=== PATIENT | female | born 1970 | race Caucasian/White ===

== ENCOUNTER 2024-04-02 13:44 | Outpatient (AMB) | payer OTHER, SELFPAY ==
[2024-04-02 13:46] VITALS: BP 120/74; PULSE 78; O2SAT 98; BMI 32.5
--- NOTE | 2024-04-02 13:46 | MHC.OFFVIS ---
Vital Signs 04/02/24 13:46 Height 5 ft 5 in Weight 195 lb 8 oz BMI 32.5 BP 120/74 Blood Pressure Location Lt brachial Position Sitting Pulse 78 Pulse Source Pulse Oximeter Pulse Oximetry (%) 98 Oxygen Delivery Method Room Air Intake Visit Reasons: Dermatomyositis Intake Note: Patient presents for follow up on dermatomyositis with myopathy. She was last seen at [facility] by DR. Little on 01/02/24. Allergies No Known Allergies Allergy (Verified 04/02/24 13:49) HPI HPI Dermatomyositis: Details: She is doing well. No muscle weakness, dyspnea, dysphagia or new rash. No recent infection. [facility] Surgical History (Updated 04/02/24 @ 13:54 by Tatiana Allen CMA) H/O breast augmentation S/P tonsillectomy Family History (Updated 04/02/24 @ 13:55 by Tatiana Allen CMA) Mother Lung cancer Father Diabetes Social History (Updated 04/02/24 @ 13:55 by Tatiana Allen CMA) Household Members: Family Alcohol intake: current Alcohol intake frequency: holidays/special occasions only Patient Tobacco Use Status: Former Tobacco user Review of Systems Const All systems reviewed & are unremarkable except as noted in HPI and below Physical Exam Vital Signs: Last Vital Signs Pulse 78 04/02/24 13:46 BP 120/74 04/02/24 13:46 Pulse Ox 98 04/02/24 13:46 Oxygen Delivery Method Room Air 04/02/24 13:46 BMI result Body Mass Index 32.5 Const Other: General: Comfortable CVS: RRR Respiratory: clear to auscultation bilaterally. Good respiratory effort Skin: No lesions seen MSK: No tenderness of any joint. Good range of motion of upper extremities and lower extremities. Power 5/5 upper extremities and lower extremities. Assessment & Plan Assessment & Plan (1) Dermatomyositis: Comment: In clinical remission on mycophenolate mofetil. Code(s): M33.13 - Other dermatomyositis without myopathy Category: Medical Plan: Labs for disease and drug monitoring on high-risk medication ordered Continue mycophenolate mofetil 1500 mg twice a day Return to clinic in 3 months (2) Other senior care (current) drug therapy: Code(s): Z79.899 - Other senior care (current) drug therapy Category: Medical Plan: See above Orders: Orders Aldolase Today . - Other dermatomyositis without myopathy, Z79.899 - Other senior care (current) drug therapy Creatine Kinase Total Today . - Other dermatomyositis without myopathy, Z79.899 - Other senior care (current) drug therapy T Spot TB Today . - Other dermatomyositis without myopathy, Z79.899 - Other senior care (current) drug therapy Hepatitis B,C Profile Today - Other dermatomyositis without myopathy, Z79.899 - Other senior care (current) drug therapy Medications: New mycophenolate mofetil 3 tabs in the morning, 3 tabs at night. 1,500 mg (3 x 500 mg) PO BID 180 tabs 2RF mycophenolate mofetil 3 tabs in the morning, 3 tabs at night. Replace previous rx. 1,500 mg (3 x 500 mg) PO BID 180 tabs 2RF Coding Level of Care Code Est Pt Level 4 (55091) Complex EM visit Add On G2211 Diagnoses Dermatomyositis Other long term care social worker (current) drug therapy Z79.899
--- OUTSIDE RECORDS SUMMARY | 2024-04-02 14:40 | XMS_ITS | Clinical Summary ---
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 08/09/2023 Active EPINEPHrine (EpiPen 2-Chase) 0.3 mg/0.3 mL injection Inject 0.3 mg into the muscle as needed for Other (anaphylactic reaction). 2-pack. Fill with whichever brand is covered by insurance. 07/27/2021 Active mycophenolate (CELLCEPT) 500 mg tablet Take 1,500 mg by mouth [address] Vizcaino Active loratadine (CLARITIN) 10 mg tablet Take 10 mg by mouth daily. PRN Only Active fluticasone propionate (FLONASE) 50 mcg/actuation nasal spray 2 Sprays by Each Nare route daily. prn Active melatonin 5 mg capsule Take 1-2 Caps by mouth at bedtime as needed. Active multivitamin with minerals (CENTRUM/CERTAVIT) 18-400 mg-mcg tablet tablet Take by mouth. Active atorvastatin (LIPITOR) 10 mg tablet Take 1 tablet (10 mg total) by mouth at bedtime. 90 tablet 02/22/2024 Active Active Problems Problem Noted Date Diagnosed Date Tubular adenoma 11/23/2022 Overview (12/25/2023): 11/26 CN tubular adenoma, repeat 5 years Dermatomyositis 02/13/2019 Positive MATT (antinuclear antibody) 11/08/2018 Obesity (BMI 30.0-34.9) 12/19/2017 Hyperlipidemia 08/13/2008 Overview (12/25/2023): ASCVD score: 4% (DEC 2019) Hypothyroid 07/13/2008 Bipolar disorder 08/24/2005 Overview (12/25/2023): admission 05/09, manic Encounters Date Type Department Care Team Description 02/08/2024 3:30 PM EST Office Visit Adult Medicine [address] [phone] Michaelle Caldera PA Hypothyroidism, unspecified type (Primary Dx); Mixed hyperlipidemia; Obesity (BMI 30.0-34.9); Fatigue, unspecified type; Snoring from Last 3 Months Immunizations Name Administration Dates Next Due COVID-19 (Pfizer/Comirnaty) 12yo and older 04/05/2023 H1N1 Inj Preservative Free 02/20/2009 Hepatitis B (Dhhbbkg-G-Lwarc , Recombivax HB-Adult) 19yo and older 04/24/2019,07/20/2016,02/24/2016,01/26 Influenza Quadravalent, MDCK , 0.5ml, preservative free (Flucelvax) 6mo and older 01/31/2023,11/22/2019,02/13/2019,12/19,12/20/2016 Influenza Quadravalent, MDCK , 0.5ml, with preservative (Flucelvax) 6mo and older 12/22/2021 Influenza trivalent, 0.5mL, preservative free (Fluarix; FluLaval; Fluzone) ages 6mo and older (Afluria) 3 years and older 10/30/2023,01/31/2023,01/26/2015,03/27,03/19/2013,03/14/2012,01/15/2010 ,02/20/2009,12/28/2007,01/31/2007 Influenza trivalent, with pr eservative (Fluzone; Afluria) 6mo and older 01/26/2015,03/27/2014,03/19/2013,03/14,01/15/2010,02/20/2009,12/28/2007 ,01/31/2007 Influenza, Unspecified 12/20/2016 Meningococcal MCV4P 04/24/2019 Pfizer (ages 12 & older) Biv alent, COVID-19 04/05/2023 Pneumococcal conjugate 13 va lent (Prevnar 13, PCV13) 2mo and older 02/13/2019 Pneumococcal polysaccharide 23 valent (Pneumovax 23) 2yo and older 04/24/2019 Respiratory syncytial virus (RSV), unspecified 04/05/2023 Td Tetanus diptheria (Tdvax) 7yo and older 02/02/2022,05/17/2005 Tdap Tetanus diptheria acell ular pertussis (Boostrix; Adacel) 7yo and older 08/19/2011 Surgical History Surgery Date Site/Laterality Comments TONSILLECTOMY PROCEDURE: HISTORICAL TONSILLECTOMY OTHER SURGICAL HISTORY 08/2018 PROCEDURE: MAMMOGRAM OTHER SURGICAL HISTORY PROCEDURE: HISTORY OTHER; COMMENT: bilateral breast augmentation, saline implant OTHER SURGICAL HISTORY PROCEDURE: HYSTEROSCOPY, SURGICAL/SAMPLING; COMMENT: polypectomy OTHER SURGICAL HISTORY PROCEDURE: IMPLANT BREAST SILICONE/EQ Medical History Medical History Date Comments Bipolar disorder, unspecified ([facility]) 6 DX:Bipolar disorder, unspecified ([facility]); COMMENT: admission 05/09, manic Alcohol abuse, unspecified 08/24/2005 DX:Al cohol abuse, unspecified; COMMENT: DUI Hypothyroid 07/13/2008 DX:Hypothyroid Hypercholesteremia 08/13/2008 DX:Hyperchole steremia Endometrial polyp DX:Endometrial polyp Submucous leiomyoma of uterus DX :Submucous leiomyoma of uterus Pyelonephritis 05/14/2005 DX:Pyelonephriti s; COMMENT: 06/06 IMO update Dermatomyositis ([facility]) 02/13/2019 DX:Lobo matomyositis ([facility]) Tubular adenoma 11/23/2022 DX:Tubular adeno ma; COMMENT: 11/26 CN tubular adenoma, repeat 5 years Family History Medical History Relation Name Comments Hypertension Brother Diabetes Father 62 No Known Problems Maternal Grandfather No Known Problems Maternal Grandmother Other: cancer of lung Mother 5 2, bipolar No Known Problems Paternal Grandfather No Known Problems Paternal Grandmother Other: bipolar Sister 1 hypertension Hypertension Sister 2 (a second siste r) Breast cancer Neg Hx Colon cancer Neg Hx Ovarian cancer Neg Hx Relation Name Status Comments Brother Father Maternal Grandfather Maternal Grandmother Mother Paternal Grandfather Paternal Grandmother Sister 1 Sister 2 Social History Tobacco Use Types Packs/Day Years Used Date Smoking Tobacco: Former Cigarettes Q uit: 04/06/2019 Smokeless Tobacco: Never Tobacco Cessation:Counseling Given: Not Answered Alcohol Use Standard Drinks/Week Comments Yes 0 (1 standard drink = 0.6 oz pur e alcohol) Sex and Gender Information Value Date Recorded Sex Assigned at Not on file Gender Identity Not on file Sexual Orientation Not on file Job Start Date Occupation Industry Not on file Not on file Not on file Obstetrics History Last Filed Vital Signs Vital Sign Reading Time Taken Comments Blood Pressure 120/70 02/08/2024 4:05 PM EST Pulse 81 02/08/2024 4:05 PM EST Temperature 35.8 ??C (96.5 ??F) 02/08/2024 4:05 PM ES T Respiratory Rate 16 02/08/2024 4:05 PM EST Oxygen Saturation 95% 02/08/2024 4:05 PM EST Inhaled Oxygen Concentration - - Weight 89.4 kg (197 lb) 02/08/2024 4:05 PM EST Height 165.1 cm (5' 5 ) 02/08/2024 4:05 PM EST Body Mass Index 32.78 02/08/2024 4:05 PM EST Plan of Treatment Health Maintenance Due Date Last Done Comments Zoster Vaccines (1 of 2) 09/24/1990 Depression Screening 02/05/2022 Social Influencers of Health Screening 02/05/2022 COVID-19 Vaccine ( season) 2023 04/05/2023, 04/05/2023, 03/26/2021, Additional history exists Pneumococcal Vaccine: Pediatrics (0 to 5 Years) and At-Risk Patients (6 to 64 Years) (3 of 3 - PPSV23 or PCV20) 04/24/2024 04/24/2019, 02/13/2019 Breast Cancer Screening 02/16/2025 02/17/20 23, 05/02/2020, 08/23/2018 Colorectal Cancer Screening: Colonoscopy 11/22/2027 11/21/2022 Cholesterol Screening (Lipid Panel) 02/16/2028 02/15/2023 Cervical Cancer Screening: HPV 03/24/2028 03/24/2023 DTaP,Tdap,and Td Vaccines (4 - Td or Tdap) 02/03/2032 02/02/2022, 08/19/2011, 05/17/2005 Hepatitis B Vaccines Completed 04/24/2019, 07/20/2016, 02/24/2016, Additional history exists Meningococcal ACWY Vaccine Aged Out 04/24/2019 N o longer eligible based on patient's age to complete this topic HIV Screening Completed 03/11/2020 Hepatitis C Screening Completed 03/11/2020 RSV Immunization Patients Under 20 months Aged Out 04/05/2023 No longer eligible based on patient's age to complete this topic Influenza Vaccine Completed 10/30/2023, , 01/31/2023, Additional history exists HIB Vaccines Aged Out No longer eligi ble based on patient's age to complete this topic HPV Vaccines Aged Out No longer eligi ble based on patient's age to complete this topic Hepatitis A Vaccines Aged Out No long er eligible based on patient's age to complete this topic IPV Vaccines Aged Out No longer eligi ble based on patient's age to complete this topic MMR Vaccines Aged Out No longer eligi ble based on patient's age to complete this topic Varicella Vaccines Aged Out No longer eligible based on patient's age to complete this topic Procedures Procedure Name Priority Date/Time Associated Diagnosis Comments CBC WITH AUTO DIFFERENTIAL Routine 02/08/2024 4:51 PM EST Hypothyroidism, unspecified type Mixed hyperlipidemia Obesity (BMI 30.0-34.9) COMPREHENSIVE METABOLIC PANEL Routine 02/08/2024 4:51 PM EST Hypothyroidism, unspecified type Mixed hyperlipidemia Obesity (BMI 30.0-34.9) CBC AND DIFFERENTIAL Routine 02/08/2024 4:51 PM EST Hypothyroidism, unspecified type Mixed hyperlipidemia Obesity (BMI 30.0-34.9) THYROID STIMULATING HORMONE Routine 02/08/2024 4:51 PM EST Hypothyroidism, unspecified type Mixed hyperlipidemia Obesity (BMI 30.0-34.9) HPV Routine 03/24/2023 SCREENING MAMMOGRAPHY BI 2-VIEW BREAST INC CAD Routine 02/16/2023 9:57 AM EST Encounter for screening mammogram for malignant neoplasm of breast LIPID PANEL Routine 02/15/2023 COLONOSCOPY Routine 11/21/2022 HEPATITIS C SCREENING Routine 03/11/2020 HIV SCREENING Routine 03/11/2020 from Last 3 Months or Most Recently Relevant to Health Maintenance Results * (ABNORMAL) CBC auto differential (02/08/2024 4:51 PM EST) WBC 7.5 4.8 - 10.8 K/mcL LAB HEMETOLOGY METHOD 02/08/2024 6:38 PM [facility] RBC 4.60 3.80 - 4.80 M/mcL LAB HEMETOLOGY METHOD 02/08/2024 6:38 PM [facility] Hemoglobin 14.4 11.5 - 16.0 g/dL LAB HEMETOLOGY METHOD 02/08/2024 6:38 PM [facility] Hematocrit 43.7 35.0 - 47.0 % LAB HEMETOLOGY METHOD 02/08/2024 6:38 PM [facility] MCV 94.2 79.0 - 98.0 FL LAB HEMETOLOGY METHOD 02/08/2024 6:38 PM [facility] MCH 31.0 27.0 - 32.0 pcg LAB HEMETOLOGY METHOD 02/08/2024 6:38 PM [facility] MCHC 33.0 32.0 - 37.0 g/dL LAB HEMETOLOGY METHOD 02/08/2024 6:38 PM [facility] RDW 11.9 11.0 - 15.0 % LAB HEMETOLOGY METHOD 02/08/2024 6:38 PM [facility] Platelets 227 130 - 400 K/mcL LAB HEMETOLOGY METHOD 02/08/2024 6:38 PM [facility] MPV 11.3(H) 7.0 - 11.0 FL LAB HEMETOLOGY METHOD 02/08/2024 6:38 PM [facility] NRBC 0.0 <1.0 % LAB HEMETOLOGY METHOD 02/08/2024 6:38 PM [facility] NRBC Absolute 0.00 <0.10 K/mcL LAB HEMETOLOGY METHOD 02/08/2024 6:38 PM [facility] Neutrophils Relative 64.6 % LAB HEMETOLOGY METHOD 02/08/2024 6:38 PM [facility] Lymphocytes Relative 25.0 % LAB HEMETOLOGY METHOD 02/08/2024 6:38 PM [facility] Monocytes Relative 6.9 % LAB HEMETOLOGY METHOD 02/08/2024 6:38 PM [facility] Eosinophils Relative 2.7 % LAB HEMETOLOGY METHOD 02/08/2024 6:38 PM [facility] Basophils Relative 0.5 % LAB HEMETOLOGY METHOD 02/08/2024 6:38 PM [facility] Immature Granulocytes Relative 0.3 % LAB HEMETOLOGY METHOD 02/08/2024 6:38 PM [facility] Neutrophils Absolute 4.87 1.50 - 7.00 K/mcL LAB HEMETOLOGY METHOD 02/08/2024 6:38 PM [facility] Lymphocytes Absolute 1.88 1.00 - 5.00 K/mcL LAB HEMETOLOGY METHOD 02/08/2024 6:[address] [facility] Monocytes Absolute 0.52 0.20 - 1.00 K/mcL LAB HEMETOLOGY METHOD 02/08/2024 6:[address] [facility] Eosinophils Absolute 0.20 0.00 - 0.50 K/mcL LAB HEMETOLOGY METHOD 02/08/2024 6:[address] [facility] Basophils Absolute 0.04 0.00 - 0.20 K/mcL LAB HEMETOLOGY METHOD 02/08/2024 6:[address] [facility] Immature Granulocytes Absolute 0.02 0.00 - 0.03 K/mcL LAB HEMETOLOGY METHOD 02/08/2024 6:[address] [facility] Blood Venous blood specimen / Unknown Venipuncture / Unknown 02/08/2024 4:51 PM EST 02/08/2024 4:51 PM EST Michaelle CHAN LAB BLOOD ORDERABLES [facility] [address] [place] [address], * Thyroid stimulating hormone (02/08/2024 4:51 PM EST) TSH 1.70 0.40 - 4.00 mcIU/mL LAB CHEMISTRY METHOD 02/08/2024 7:[address] [facility] Blood Venous blood specimen / Unknown Venipuncture / Unknown 02/08/2024 4:51 PM EST 02/08/2024 4:51 PM EST Michaelle CHAN LAB BLOOD ORDERABLES [facility] [address] [place] [address], [place] [phone] * Comprehensive metabolic panel (02/08/2024 4:51 PM EST) Sodium 142 133 - 145 mmol/L LAB CHEMISTRY METHOD 02/08/2024 7:08 PM [facility] Potassium 4.6 3.5 - 5.5 mmol/L LAB CHEMISTRY METHOD 02/08/2024 7:08 PM [facility] Chloride 107 96 - 110 mmol/L LAB CHEMISTRY METHOD 02/08/2024 7:08 PM [facility] CO2 31 21 - 32 mmol/L LAB CHEMISTRY METHOD 02/08/2024 7:08 PM [facility] Anion Gap 4 3 - 11 LAB CHEMISTRY METHOD 02/08/2024 7:08 PM [facility] Glucose 97 70 - 100 mg/dL LAB CHEMISTRY METHOD 02/08/2024 7:08 PM [facility] BUN 16 5 - 25 mg/dL LAB CHEMISTRY METHOD 02/08/2024 7:08 PM [facility] Creatinine 0.91 0.50 - 1.10 mg/dL LAB CHEMISTRY METHOD 02/08/2024 7:08 PM [facility] eGFR 76 >=60 mL/min/1. 73m2 LAB CHEMISTRY METHOD 02/08/2024 7:08 PM [facility] Comment:Calculation based on the??Chronic Kidney Disease Epidemiology Collaboration (CKD-EPI) equation refit??without adjustment for race. BUN/Creatinine Ratio 17.6 LAB CHEMISTRY METHOD 02/08/2024 7:08 PM [facility] Calcium 9.5 8.5 - 10.5 mg/dL LAB CHEMISTRY METHOD 02/08/2024 7:08 PM [facility] AST (SGOT) 23 10 - 42 unit/L LAB CHEMISTRY METHOD 02/08/2024 7:08 PM [facility] ALT (SGPT) 34 10 - 60 unit/L LAB CHEMISTRY METHOD 02/08/2024 7:08 PM [facility] Alkaline Phosphatase 73 42 - 121 unit/L LAB CHEMISTRY METHOD 02/08/2024 7:[address] [facility] Total Protein 6.9 6.0 - 8.0 g/dL LAB CHEMISTRY METHOD 02/08/2024 7:[address] [facility] Albumin 4.2 3.2 - 5.0 g/dL LAB CHEMISTRY METHOD 02/08/2024 7:[address] [facility] Total Bilirubin 0.4 0.0 - 1.4 mg/dL LAB CHEMISTRY METHOD 02/08/2024 7:[address] [facility] Blood Venous blood specimen / Unknown Venipuncture / Unknown 02/08/2024 4:51 PM EST 02/08/2024 4:51 PM EST Michaelle CHAN LAB BLOOD ORDERABLES [facility] [address] [place] [address], * Cervical Cancer Screening: HPV (03/24/2023) Cervical Cancer Screening: HPV negative, abstracted Historical Provider MD NATTY Coppola * SCREENING MAMMOGRAPHY BI 2-VIEW BREAST INC CAD (02/16/2023 9:57 AM EST) Anatomical Region Laterality Modality Radiographic Cristina ging 08/04/2022 4:42 PM EDT Narrative 02/16/2023 12:08 PM EST This is a summary report. The complete report is available in the patient's medical record. If you cannot access the medical record, please contact the sending organization for a detailed fax or copy. Full field digital screening tomosynthesis mammography, reviewed with CAD and compared to previous. ??Both standard and implant displaced views were obtained bilaterally. ??Bilateral subpectoral saline implants remain appropriately configured and positioned. ??The breasts are composed of fatty and fibroglandular tissue. ??No suspicious mass, architectural distortion or suspicious calcifications are identified. IMPRESSION: : No mammographic evidence of malignancy. BIRADS 1-Negative; N. 5 year breast cancer risk assessment 1.5 % Lifetime breast cancer risk assessment 13.0 % Breast cancer risk category Low (<15%) Procedure Note Sarthak Stapleton MD - 04/11/2023 This is a summary report. The complete report is available in thepatient's medical record. If you cannot access the medical record, pleasecontact the sending organization for a detailed fax or copy. Full field digital screening tomosynthesis mammography, reviewed with CADand compared to previous. Both standard and implant displaced views wereobtained bilaterally. Bilateral subpectoral saline implants remainappropriately configured and positioned. The breasts are composed offatty and fibroglandular tissue. No suspicious mass, architecturaldistortion or suspicious calcifications are identified. IMPRESSION: : No mammographic evidence of malignancy. BIRADS 1-Negative; N. 5 year breast cancer risk assessment 1.5 % Lifetime breast cancer risk assessment 13.0 % Breast cancer risk category Low (<15%) Michaelle CHAN IMG XR PROCEDURES * (ABNORMAL) Lipid panel (02/15/2023) [facility] LDL/HDL Ratio 4 0 - 4 Triglycerides 326(A) 0 - 150 mg/dL Cholesterol 237(A) 0 - 200 mg/dL HDL 60 40 mg/dL LDL Cholesterol 112(A) 0 - 100 mg/dL Blood Venous blood specimen / Unknown Historical Provider LAB BLOOD ORDERAB LES * Colonoscopy (11/21/2022) [facility] Colonoscopy no interpretation , abstracted Anatomical Region Laterality Modality Other Historical Provider MD NATTY CORTEZ * HIV Screening (03/11/2020) [facility] HIV Screening abstracted [facility] Provider MD NATTY CORTEZ * Hepatitis C Screening (03/11/2020) [facility] Hepatitis C Screening abstracted Historical Provider MD NATTY Coppola from Last 3 Months or Most Recently Relevant to Health Maintenance Care Teams [employer] Wheel [employer]raver Relationship Specialty Start Date End Date Sheila Dunn MD [address] [place] [address] PCP - General 06/06/00
== END 2024-04-02 14:17 | disposition home or self-care (01) ==
PROVIDERS: PCP Internal Medicine Rheumatology; Visit Provider Internal Medicine Rheumatology
DX: M33.13 Other dermatomyositis without myopathy (principal); Z79.899 Other long term (current) drug therapy
CPT/HCPCS: 99214

== ENCOUNTER 2024-04-02 13:44 | Outpatient (REF) | payer OTHER, SELFPAY ==
--- OUTSIDE RECORDS SUMMARY | 2024-04-02 15:17 | XMS_ITS | Clinical Summary ---
Author Organization [address] Address [address] [place] [phone] Phone Care Team Providers Care Grocery Cashier Name Role Phone Sheila Dunn MD Primary Care Provider [phone] Allergies Active Allergy Reactions Criticality Noted Date [...] 3:30 PM EST Office Visit Adult Medicine [address] [phone] Michaelle Caldera PA Hypothyroidism, unspecified type (Primary Dx); Mixed hyperlipidemia; Obesity (BMI 30.0-34.9); Fatigue, unspecified type; Snoring from Last 3 Months Immunizations Name Administration Dates Next Due COVID-19 (Pfizer/Comirnaty) 12yo and older 04/05/2023 H1N1 Inj Preservative Free 02/20/2009 Hepatitis B (Bozfnop-I-Vjsve , Recombivax HB-Adult) 19yo and older 04/24/2019,07/20/2016,02/24/2016,01/26 [...] Medical History Date Comments Bipolar disorder, unspecified ([facility]) 6 DX:Bipolar disorder, unspecified ([facility]); COMMENT: admission 05/09, manic Alcohol abuse, unspecified 08/24/2005 DX:Al cohol abuse, unspecified; COMMENT: DUI Hypothyroid 07/13/2008 DX:Hypothyroid Hypercholesteremia 08/13/2008 DX:Hyperchole steremia Endometrial polyp DX:Endometrial polyp Submucous leiomyoma of uterus DX :Submucous leiomyoma of uterus Pyelonephritis 05/14/2005 DX:Pyelonephriti s; COMMENT: 06/06 IMO update Dermatomyositis ([facility]) 02/13/2019 DX:Lobo matomyositis ([facility]) Tubular adenoma 11/23/2022 DX:Tubular adeno ma; [...] K/mcL LAB HEMETOLOGY METHOD 02/08/2024 6:38 PM [facility] RBC 4.60 3.80 - 4.80 M/mcL LAB HEMETOLOGY METHOD 02/08/2024 6:38 PM [facility] Hemoglobin 14.4 11.5 - 16.0 g/dL LAB HEMETOLOGY METHOD 02/08/2024 6:38 PM [facility] Hematocrit 43.7 35.0 - 47.0 % LAB HEMETOLOGY METHOD 02/08/2024 6:38 PM [facility] MCV 94.2 79.0 - 98.0 FL LAB HEMETOLOGY METHOD 02/08/2024 6:38 PM [facility] MCH 31.0 27.0 - 32.0 pcg LAB HEMETOLOGY METHOD 02/08/2024 6:38 PM [facility] MCHC 33.0 32.0 - 37.0 g/dL LAB HEMETOLOGY METHOD 02/08/2024 6:38 PM [facility] RDW 11.9 11.0 - 15.0 % LAB HEMETOLOGY METHOD 02/08/2024 6:38 PM [facility] Platelets 227 130 - 400 K/mcL LAB HEMETOLOGY METHOD 02/08/2024 6:38 PM [facility] MPV 11.3(H) 7.0 - 11.0 FL LAB HEMETOLOGY METHOD 02/08/2024 6:38 PM [facility] NRBC 0.0 <1.0 % LAB HEMETOLOGY METHOD 02/08/2024 6:38 PM [facility] NRBC Absolute 0.00 <0.10 K/mcL LAB HEMETOLOGY METHOD 02/08/2024 6:38 PM [facility] Neutrophils Relative 64.6 % LAB HEMETOLOGY METHOD 02/08/2024 6:38 PM [facility] Lymphocytes Relative 25.0 % LAB HEMETOLOGY METHOD 02/08/2024 6:38 PM [facility] Monocytes Relative 6.9 % LAB HEMETOLOGY METHOD 02/08/2024 6:38 PM [facility] Eosinophils Relative 2.7 % LAB HEMETOLOGY METHOD 02/08/2024 6:38 PM [facility] Basophils Relative 0.5 % LAB HEMETOLOGY METHOD 02/08/2024 6:38 PM [facility] Immature Granulocytes Relative 0.3 % LAB HEMETOLOGY METHOD 02/08/2024 6:38 PM [facility] Neutrophils Absolute 4.87 1.50 - 7.00 K/mcL LAB HEMETOLOGY METHOD 02/08/2024 6:38 PM [facility] Lymphocytes Absolute 1.88 1.00 - 5.00 K/mcL LAB HEMETOLOGY METHOD 02/08/2024 6:38 PM EST [facility] Monocytes Absolute 0.52 0.20 - 1.00 K/mcL LAB HEMETOLOGY METHOD 02/08/2024 6:38 PM EST [facility] Eosinophils Absolute 0.20 0.00 - 0.50 K/mcL LAB HEMETOLOGY METHOD 02/08/2024 6:38 PM EST [facility] Basophils Absolute 0.04 0.00 - 0.20 K/mcL LAB HEMETOLOGY METHOD 02/08/2024 6:38 PM EST [facility] Immature Granulocytes Absolute 0.02 0.00 - 0.03 K/mcL LAB HEMETOLOGY METHOD 02/08/2024 6:38 PM EST [facility] Blood Venous blood specimen / Unknown Venipuncture / Unknown 02/08/2024 4:51 PM EST 02/08/2024 4:51 PM EST Michaelle CHAN LAB BLOOD ORDERABLES [facility] [address] [place] [address], * Thyroid stimulating hormone (02/08/2024 4:51 PM EST) TSH 1.70 0.40 - 4.00 mcIU/mL LAB CHEMISTRY METHOD 02/08/2024 7:14 PM EST [facility] Blood Venous blood specimen / Unknown Venipuncture / Unknown 02/08/2024 4:51 PM EST 02/08/2024 4:51 PM EST Michaelle CHAN LAB BLOOD ORDERABLES [facility] [address] [place] [address], [place] [phone] * Comprehensive metabolic panel (02/08/2024 4:51 PM EST) Sodium 142 133 - 145 mmol/L LAB CHEMISTRY METHOD 02/08/2024 7:08 PM [facility] Potassium 4.6 3.5 - 5.5 mmol/L LAB CHEMISTRY METHOD 02/08/2024 7:08 PM [facility] Chloride 107 96 - 110 mmol/L LAB CHEMISTRY METHOD 02/08/2024 7:08 PM [facility] CO2 31 21 - 32 mmol/L LAB CHEMISTRY METHOD 02/08/2024 7:08 PM [facility] Anion Gap 4 3 - 11 LAB CHEMISTRY METHOD 02/08/2024 7:08 PM [facility] Glucose 97 70 - 100 mg/dL LAB CHEMISTRY METHOD 02/08/2024 7:08 PM [facility] BUN 16 5 - 25 mg/dL LAB CHEMISTRY METHOD 02/08/2024 7:08 PM [facility] Creatinine 0.91 0.50 - 1.10 mg/dL LAB CHEMISTRY METHOD 02/08/2024 7:08 PM [facility] eGFR 76 >=60 mL/min/1. 73m2 LAB CHEMISTRY METHOD 02/08/2024 7:08 PM [facility] Comment:Calculation based on the??Chronic Kidney Disease Epidemiology Collaboration (CKD-EPI) equation refit??without adjustment for race. BUN/Creatinine Ratio 17.6 LAB CHEMISTRY METHOD 02/08/2024 7:08 PM [facility] Calcium 9.5 8.5 - 10.5 mg/dL LAB CHEMISTRY METHOD 02/08/2024 7:08 PM [facility] AST (SGOT) 23 10 - 42 unit/L LAB CHEMISTRY METHOD 02/08/2024 7:08 PM [facility] ALT (SGPT) 34 10 - 60 unit/L LAB CHEMISTRY METHOD 02/08/2024 7:08 PM [facility] Alkaline Phosphatase 73 42 - 121 unit/L LAB CHEMISTRY METHOD 02/08/2024 7:08 PM EST [facility] Total Protein 6.9 6.0 - 8.0 g/dL LAB CHEMISTRY METHOD 02/08/2024 7:08 PM EST [facility] Albumin 4.2 3.2 - 5.0 g/dL LAB CHEMISTRY METHOD 02/08/2024 7:08 PM EST [facility] Total Bilirubin 0.4 0.0 - 1.4 mg/dL LAB CHEMISTRY METHOD 02/08/2024 7:08 PM EST [facility] Blood Venous blood specimen / Unknown Venipuncture / Unknown 02/08/2024 4:51 PM EST 02/08/2024 4:51 PM EST Michaelle CHAN LAB BLOOD ORDERABLES [facility] [address] [place] [address], * Cervical Cancer Screening: HPV (03/24/2023) Cervical [...] XR PROCEDURES * (ABNORMAL) Lipid panel (02/15/2023) [facility] LDL/HDL Ratio 4 0 - 4 Triglycerides 326(A) 0 - 150 mg/dL Cholesterol 237(A) 0 - 200 mg/dL HDL 60 40 mg/dL LDL Cholesterol 112(A) 0 - 100 mg/dL Blood Venous blood specimen / Unknown Historical Provider LAB BLOOD ORDERAB LES * Colonoscopy (11/21/2022) [facility] Colonoscopy no interpretation , abstracted Anatomical Region Laterality Modality Other Historical Provider MD NATTY CORTEZ * HIV Screening (03/11/2020) [facility] HIV Screening abstracted [facility] Provider MD NATTY CORTEZ * Hepatitis C Screening (03/11/2020) [facility] Hepatitis C Screening abstracted Historical Provider MD NATTY Coppola from Last 3 Months or Most Recently Relevant to Health Maintenance Care Teams Grocery Cashier Relationship Specialty Start Date End Date Sheila Dunn MD [address] [place] [address] PCP - General 06/06/00
[2024-04-02 17:45] LABS: MANUAL DIFF FLAG NO
[2024-04-02 17:49] LABS: Basophils Absolute Auto 0.1 X10*3/uL (0.0-0.2); Basophils Percent Auto 0.7 % (0-2); Eosinophils Absolute Auto 0.2 X10*3/uL (0.0-0.4); Eosinophils Percent Auto 2.4 % (0-4); Hematocrit 43.1 % (37.0-47.0); Hemoglobin 14.2 g/dl (12.0-16.0); Imm Gran Abs Auto 0.01 X10*3/uL (0.00-0.03); Imm Gran Pct Auto 0.1 % (0.0-0.4); Lymphocytes Absolute Auto 1.9 X10*3/uL (1.2-4.9); Lymphocytes Percent Auto 26.8 % (20-40); Mean Corpuscular HGB Conc 32.9 g/dl (31.0-35.0); Mean Corpuscular Hemoglobin 30.8 pg (27.0-33.0); Mean Corpuscular Volume 93.5 fL (80.0-98.0); Mean Platelet Volume 11.7 fL (9.4-12.3); Monocytes Absolute Auto 0.5 X10*3/uL (0.1-1.2); Monocytes Percent Auto 7.5 % (2-11); Neutrophils Absolute Auto 4.4 x10*3/uL (2.0-8.3); Neutrophils Percent Auto 62.5 % (45-73); Platelet Count 211 X10*3/uL (160-400); Red Blood Count 4.61 X10*6/uL (4.20-5.50); Red Cell Distribution Width 12.3 % (11.0-16.0); White Blood Count 7.1 X10*3/uL (4.8-10.8)
[2024-04-02 18:07] LABS: Aspartate Amino Transferase 25 U/L (5-31); C Reactive Protein 0.32 mg/dL (< or = 0.50); Estimated Glomerular Filt Rate > 60
[2024-04-02 18:21] LABS: Alanine Aminotransferase 30 U/L (0-31)
[2024-04-02 18:34] LABS: Erythrocyte Sedimentation Rate 5 MM/HR (0-20)
[2024-04-03 03:49] LABS: HBS Num1 5.89 mIU/mL (0-7.99); HBc Num1 0.08 S/CO (0.00-0.79); HBsAGNum1 0.44 S/CO (0.00-0.99); Hepatitis B Core Antibody Nonreactive (Nonreactive); Hepatitis B Surface Antigen Negative (Negative); ~HepC Num1 0.08 S/CO (0.00-0.79); ~Hepatitis B Surface Antibody NONREACTIVE (Nonreactive); ~Hepatitis C Antibody Nonreactive (Nonreactive)
[2024-04-05 05:18] LABS: TS Negative Control Passed; TS Panel A 0; TS Panel B 0; TS Positive Control Passed; TSpotTB Negative (Negative)
[2024-04-06 15:24] LABS: Aldolase 6.3 U/L (<=8.1)
== END 2024-04-02 13:45 | disposition home or self-care (01) ==
LOC: HO.HKASLDS 13:44
PROVIDERS: Visit Provider Internal Medicine Rheumatology
DX: M33.13 Other dermatomyositis without myopathy (principal); Z79.899 Other long term (current) drug therapy
CPT/HCPCS: 36415; 82085; 82550; 82565; 84450; 84460; 85025; 85652; 86140; 86481; 86704; 86706; 86803; 87340

== ENCOUNTER 2024-07-02 14:32 | Outpatient (REF) | payer OTHER, SELFPAY ==
[2024-07-02 17:34] LABS: MANUAL DIFF FLAG NO
[2024-07-02 17:46] LABS: Basophils Absolute Auto 0.1 X10*3/uL (0.0-0.2); Basophils Percent Auto 0.6 % (0-2); Eosinophils Absolute Auto 0.3 X10*3/uL (0.0-0.4); Eosinophils Percent Auto 3.6 % (0-4); Hematocrit 42.3 % (37.0-47.0); Hemoglobin 14.2 g/dl (12.0-16.0); Imm Gran Abs Auto 0.01 X10*3/uL (0.00-0.03); Imm Gran Pct Auto 0.1 % (0.0-0.4); Lymphocytes Absolute Auto 2.1 X10*3/uL (1.2-4.9); Lymphocytes Percent Auto 26.3 % (20-40); Mean Corpuscular HGB Conc 33.6 g/dl (31.0-35.0); Mean Corpuscular Volume 92.4 fL (80.0-98.0); Mean Platelet Volume 11.6 fL (9.4-12.3); Monocytes Absolute Auto 0.6 X10*3/uL (0.1-1.2); Monocytes Percent Auto 7.2 % (2-11); Neutrophils Absolute Auto 4.9 x10*3/uL (2.0-8.3); Neutrophils Percent Auto 62.2 % (45-73); Platelet Count 214 X10*3/uL (160-400); Red Blood Count 4.58 X10*6/uL (4.20-5.50); Red Cell Distribution Width 12.6 % (11.0-16.0)
[2024-07-02 18:01] LABS: Alanine Aminotransferase 37 U/L (0-31); Aspartate Amino Transferase 38 U/L (5-31); C Reactive Protein 0.74 mg/dL (< or = 0.50); Estimated Glomerular Filt Rate > 60
--- OUTSIDE RECORDS SUMMARY | 2024-07-02 18:10 | XMS_ITS | Clinical Summary ---
Author Organization [address] Address [address] [place] [phone] Phone Care Team Providers Care Asphalt Patcher Name Role Phone Sheila Dunn MD Primary Care Provider [phone] Allergies Active Allergy Reactions Criticality Noted Date [...] CN tubular adenoma, repeat 5 years Dermatomyositis ([facility] V24, [facility] V28) 02/13 Positive MATT (antinuclear antibody) 11/08/2018 Obesity (BMI 30.0-34.9) 12/19/2017 Hyperlipidemia 08/13/2008 Overview (12/25/2023): ASCVD score: 4% (DEC 2019) Hypothyroid 07/13/2008 Bipolar disorder ([facility] V24, [facility] V28) 08/05 Overview (12/25/2023): admission 05/09, manic Encounters Date Type Department Care Team Description 05/09/2024 5:18 PM EST - 05/09/2024 11:59 PM EST Hospital Encounter Radiology Department - [address] [phone] Hypothyroidism, unspecified type Discharge Disposition: Home or Self Care 05/07/2024 4:00 PM EST Consult Endocrinology - [address] [phone] Noemy Guo PA Hypothyroidism, unspecified type (Primary Dx); Fatigue, unspecified type from Last 3 Months Immunizations Name Administration Dates Next Due COVID-19 (Pfizer/Comirnaty) 12yo and older 04/05/2023 H1N1 Inj Preservative Free 02/20/2009 Hepatitis B (Qlgxmhx-A-Xeqgz , Recombivax HB-Adult) 19yo and older 04/24/2019,07/20/2016,02/24/2016,01/26 [...] History Date Comments Bipolar disorder, unspecifie d ([facility] V24, [facility] V28) 08/24/2005 DX:Bipolar disorder, unspeci fied ([facility]); COMMENT: admission 05/09, manic Alcohol abuse, unspecified [...] 4:30 PM EDT Office Visit Endocrinology - [place] [address] [place] [phone] Noemy Guo PA [address] [place] [address] Health Maintenance Due Date Last Done Comments [...] [facility] - 05/16/2024 5:05 PM EDT Test(s) [id number],F,ug/L,U was developed and its performance characteristics determined by [facility]. It has not been cleared or approved by the Food and Drug Administration. Performed at: ??01 - [facility] [address] ??[id number] Commercial Real Estate Appraiser: Barbra Metz MD, Phone: ??[phone] Noemy CHAN LAB URINE ORDERABLES Final Result Performing Organization Address [facility]/State/[place] Co de Phone Number [facility] * [place] [...] Volume 14, Issue 5 , 587 595. http://www.jacr.org/article/[email or web address](17)[email or web address]/fulltext ACR TI-RADS recommendations: TR1 and TR2: No [...] Signed Date: 05/10/2024 07:25 ET Workstation ID: [id number] Transcribed By: Self Edit Transcribed Date: 05/10/2024 [...] Volume 14, Issue 5 , 587 - 921. http://www.jacr.org/article/[email or web address](35)[email or web address]/fulltext ACR TI-RADS recommendations: TR1 and TR2: No [...] Signed Date: 05/10/2024 07:25 ET Workstation ID: [id number] Transcribed By: Self Edit Transcribed Date: 05/10/2024 07:24 ET us Noemy CHAN IMG US PROCEDURES Final Res ult * Thyroid stimulating hormone with reflex to free t4 and free t3 (05/07/2024 4:59 PM EST) TSH 2.37 0.40 - 4.00 mcIU/mL LAB CHEMISTRY METHOD 05/07/2024 6:58 PM EST [facility] Blood Venous blood specimen / Unknown Venipuncture / Unknown 05/07/2024 4:59 PM EST 05/07/2024 4:59 PM EST us Noemy CHAN LAB BLOOD ORDERABLES Final Result [facility] [address] [place] [address], [place] [phone] * (ABNORMAL) Lipid panel with reflex to direct LDL (05/07/2024 4:59 PM EST) Pathologist [facility] Cholesterol 236(H) 0 - 200 mg/dL LAB CHEMISTRY METHOD 05/07/2024 6:[address] [facility] Triglycerides 424(H) 0 - 150 mg/dL LAB CHEMISTRY METHOD 05/07/2024 6:[address] [facility] HDL 61 >=40 mg/dL LAB CHEMISTRY METHOD 05/07/2024 6:[address] [facility] LDL Calculated 90 0 - 100 mg/dL LAB CHEMISTRY METHOD 05/07/2024 6:[address] [facility] Comment:Unable to calculate when triglycerides >400 mg/dL. VLDL Cholesterol Charles 84.8 mg/dL LAB CHEMISTRY METHOD 05/07/2024 6:[address] [facility] Comment:Unable to calculate when triglycerides >400 mg/dL. Non HDL Chol. (LDL+VLDL) 175(H) <145 mg/dL LAB CHEMISTRY METHOD 05/07/2024 6:[address] [facility] Comment:Unable to calculate when triglycerides >400 mg/dL. Chol/HDL Ratio 3.9 0.0 - 4.4 LAB CHEMISTRY METHOD 05/07/2024 6:[address] [facility] Blood Venous blood specimen / Unknown Venipuncture / Unknown 05/07/2024 4:59 PM EST 05/07/2024 4:59 PM EST Michaelle CHAN LAB BLOOD ORDERABLES Final Re sult Performing Organization Address [facility]/ZIP Co de Phone Number [facility] [address] [place] [address], [place] [phone] * (ABNORMAL) Vitamin D 25 hydroxy (05/07/2024 4:59 PM EST) [facility] Vit D, 25-Hydroxy 24.8(L) 30.0 - 80.0 ng/mL LAB CHEMISTRY METHOD 05/07/2024 6:58 PM EST [facility] Blood Venous blood specimen / Unknown Venipuncture / Unknown 05/07/2024 4:59 PM EST 05/07/2024 4:59 PM EST Noemy CHAN LAB BLOOD ORDERABLES Final Result Performing Organization Address [facility]/ZIP Co de Phone Number [facility] [address] [place] [address], [place] [phone] * Cervical Cancer Screening: HPV (03/24/2023) [facility] Cervical Cancer Screening: HPV negative, abstracted [...] PROCEDURES Final Resul t * Colonoscopy (11/21/2022) [facility] Colonoscopy no interpretation , abstracted Anatomical Region Laterality Modality Other Result [facility] Historical Provider HEALTH MAINTENANCE Final Result * HIV Screening (03/11/2020) [facility] HIV Screening abstracted Result [facility] Historical Provider HEALTH MAINTENANCE Final Result * Hepatitis C Screening (03/11/2020) [facility] Hepatitis C Screening abstracted Historical Provider HEALTH MAINTENANCE Final Result from Last 3 Months or Most Recently Relevant to Health Maintenance [place] [address] [place] [address] Care Teams Asphalt Patcher Relationship Specialty Start Date End Date Sheila Dunn MD [address] [place] [address] PCP - General 06/06/00
[2024-07-02 18:44] LABS: Erythrocyte Sedimentation Rate 7 MM/HR (0-20)
[2024-07-09 14:44] LABS: Aldolase 7.9 U/L (<=8.1)
== END 2024-07-02 14:33 | disposition home or self-care (01) ==
LOC: HO.HKASLDS 14:32
PROVIDERS: PCP Internal Medicine Rheumatology; Visit Provider Internal Medicine Rheumatology
DX: M33.13 Other dermatomyositis without myopathy (principal); Z79.60 Long term (current) use of unspecified immunomodulators and immunosuppressants; Z79.899 Other long term (current) drug therapy
CPT/HCPCS: 36415; 82085; 82550; 82565; 84450; 84460; 85025; 85652; 86140

== ENCOUNTER 2024-07-02 14:32 | Outpatient (AMB) | payer OTHER, SELFPAY ==
[2024-07-02 14:44] VITALS: BP 130/80; PULSE 73; O2SAT 95
--- NOTE | 2024-07-02 14:44 | MHC.OFFVIS ---
Vital Signs 07/02/24 14:44 Weight 189 lb 9.561 oz BP 130/80 Pulse 73 Pulse Source Pulse Oximeter Pulse Oximetry (%) 95 Oxygen Delivery Method Room Air Intake Visit Reasons: 3 mnts Intake Note: Patient presents for follow up on dermatomyositis with myopathy. Allergies No Known Allergies Allergy (Verified 04/02/24 13:49) HPI HPI 3 mnts: Details: She is doing well. No recent infections. No muscle weakness, dysphagia, rash or any joint symptoms. PFSH Surgical History (Updated 04/02/24 @ 13:54 by Tatiana Allen CMA) H/O breast augmentation S/P tonsillectomy Family History (Updated 04/02/24 @ 13:55 by Tatiana Allen CMA) Mother Lung cancer Father Diabetes Social History (Updated 04/02/24 @ 13:55 by Tatiana Allen CMA) Household Members: Family Alcohol intake: current Alcohol intake frequency: holidays/special occasions only Patient Tobacco Use Status: Former Tobacco user Review of Systems Const All systems reviewed & are unremarkable except as noted in HPI and below Physical Exam Vital Signs: Last Vital Signs Pulse 73 07/02/24 14:44 BP 130/80 07/02/24 14:44 Pulse Ox 95 07/02/24 14:44 Oxygen Delivery Method Room Air 07/02/24 14:44 Const Other: General: Comfortable CVS: RRR Respiratory: clear to auscultation bilaterally. Good respiratory effort Skin: No lesions seen MSK: No tenderness of any joint. Good range of motion of upper extremities and lower extremities. Power 5/5 upper extremities and lower extremities. Assessment & Plan Assessment & Plan (1) Dermatomyositis: Comment: In clinical remission on mycophenolate mofetil. Code(s): M33.13 - Other dermatomyositis without myopathy Category: Medical Plan: Labs for disease and drug monitoring on high-risk medication ordered Continue mycophenolate mofetil 1500 mg twice a day Return to clinic in 3 months (2) Other distributed energy systems consultant (current) drug therapy: Code(s): Z79.899 - Other distributed energy systems consultant (current) drug therapy Category: Medical Plan: See above Orders: Orders Alanine Aminotransferase Today Z79.60 - photostatic copy maker (current) use of unspecified immunomodulators and immunosuppressants Complete Blood Count Auto Diff Today Z79.60 - senior living (current) use of unspecified immunomodulators and immunosuppressants Aldolase Today M33.13 - Other dermatomyositis without myopathy Creatine Kinase Total Today M33.13 - Other dermatomyositis without myopathy Aspartate Amino Transferase Today Z79.60 - photostatic copy maker (current) use of unspecified immunomodulators and immunosuppressants Creatinine Today Z79.60 - senior living (current) use of unspecified immunomodulators and immunosuppressants Erythrocyte Sedimentation Rate Today Z79.899 - Other distributed energy systems consultant (current) drug therapy C Reactive Protein Today Z79.899 - Other distributed energy systems consultant (current) drug therapy Medications: Changed From mycophenolate mofetil 3 tabs in the morning, 3 tabs at night. Replace previous rx. 1,500 mg (3 x 500 mg) PO BID 180 tabs 2RF To mycophenolate mofetil 3 tabs in the morning, 3 tabs at night. 1,500 mg (3 x 500 mg) PO BID 180 tabs 2RF Coding Level of Care Code Est Pt Level 4 (38170) Complex EM visit Add On G2211 Diagnoses Dermatomyositis M33.13 Other distributed energy systems consultant (current) drug therapy Z79.899
--- OUTSIDE RECORDS SUMMARY | 2024-07-02 16:51 | XMS_ITS | Clinical Summary ---
Author Organization [address] Address [address] [place] [phone] Phone Care Team Providers Care Cable Mock Up Assembler Name Role Phone Sheila Dunn MD Primary Care Provider Allergies Active Allergy Reactions Criticality Noted Date Comments Cat Dander 10/13/2017 Dog Dander 10/13/2017 Other Itching 10/13/2017 seasonal Medications EPINEPHrine (EpiPen 2-Chase) 0.3 mg/0.3 mL injection 2 Active mycophenolate (CELLCEPT) 500 mg tablet Take [...] bedtime as needed. Active multivitamin with minerals (CENTRUM/CERTA VIT) 18-400 mg-mcg tablet tablet Take by mouth. Active levothyroxine (SYNTHROID, LEVOTHROID) 88 mcg tablet Take 1 tablet (88 mcg total) by mouth 1 (one) time each day before breakfast. 90 tablet 5 Active ergocalciferol (VITAMIN D-2) 1,250 mcg (50,000 unit) capsule Take 1 capsule (50,000 Units total) by mouth 1 (one) time per week. 4 each 2 5 07/26/19 25 Active atorvastatin (LIPITOR) 10 mg tablet Take 1 tablet (10 mg total) by mouth at bedtime. 90 tablet 5 Active atorvastatin (LIPITOR) 10 mg tablet Take 1 tablet (10 mg total) by mouth at bedtime. 90 tablet 4 06/04/19 25 Discontinued Active Problems Problem Noted Date Diagnosed Date Tubular adenoma 11/23/2022 Overview (12/25/2023): 11/26 CN tubular adenoma, repeat 5 years Dermatomyositis ([facility] V24, [facility] V28) 02/13 Positive MATT (antinuclear antibody) 11/08/2018 Obesity (BMI 30.0-34.9) 12/19/2017 Hyperlipidemia 08/13/2008 Overview (12/25/2023): ASCVD score: 4% (DEC 2019) Hypothyroid 07/13/2008 Bipolar disorder ([facility] V24, [facility] V28) 08/05 Overview (12/25/2023): admission 05/09, manic Encounters Date Type Department Care Team Description 05/09/2024 5:18 PM EST - 05/09/2024 11:59 PM EST Hospital Encounter Radiology Department - [address] [phone] Hypothyroidism, unspecified type Discharge Disposition: Home or Self Care 05/07/2024 4:00 PM EST Consult Endocrinology - [address] [phone] Noemy Guo PA Hypothyroidism, unspecified type (Primary Dx); Fatigue, unspecified type from Last 3 Months Immunizations Name Administration Dates Next Due COVID-19 (Pfizer/Comirnaty) 12yo and older 04/05/2023 H1N1 Inj Preservative Free 02/20/2009 Hepatitis B (Qppnnbl-H-Ysjno , Recombivax HB-Adult) 19yo and older 04/24/2019,07/20/2016,02/24/2016,01/26 [...] pertussis (Boostrix; Adacel) 7yo and older 08/19/2011 Zoster recombinant (Shingrix ) 19yo and older 05/03/2024 Surgical History Surgery Date Site/Laterality Comments TONSILLECTOMY PROCEDURE: HISTORICAL TONSILLECTOMY OTHER SURGICAL HISTORY 08/2018 PROCEDURE: MAMMOGRAM OTHER SURGICAL HISTORY PROCEDURE: HISTORY OTHER; COMMENT: bilateral breast augmentation, saline implant OTHER SURGICAL HISTORY PROCEDURE: HYSTEROSCOPY, SURGICAL/SAMPLING; COMMENT: polypectomy OTHER SURGICAL HISTORY PROCEDURE: IMPLANT BREAST SILICONE/EQ Medical History Medical History Date Comments Bipolar disorder, unspecifie d ([facility] V24, [facility] V28) 08/24/2005 DX:Bipolar disorder, unspeci fied ([facility]); COMMENT: admission 05/09, manic Alcohol abuse, unspecified 08/24/2005 DX:Al cohol abuse, unspecified; COMMENT: DUI Hypothyroid 07/13/2008 DX:Hypothyroid Hypercholesteremia 08/13/2008 DX:Hyperchole steremia Endometrial polyp DX:Endometrial polyp Submucous leiomyoma of uterus DX :Submucous leiomyoma of uterus Pyelonephritis 05/14/2005 DX:Pyelonephriti s; COMMENT: 06/06 IMO update Dermatomyositis (CMS/HCC V24 , CMS/HCC V28) 02/13/2019 DX:Dermatomyositis (HCC) Tubular adenoma 11/23/2022 DX:Tubular adeno ma; COMMENT: [...] drink = 0.6 oz pur e alcohol) Comments Unknown Sex and Gender Information Value Date Recorded Sex Assigned at Not on file Legal Sex Female 7:37 PM EST Gender Identity Not on file Sexual Orientation Not on file Obstetrics History Last Filed Vital Signs Vital Sign Reading Time Taken Comments Blood Pressure 118/62 05/07/2024 4:06 PM EST Pulse 78 05/07/2024 4:06 PM EST Temperature 36.5 ??C (97.7 ??F) 05/07/2024 4:06 PM ES T Respiratory Rate 14 05/07/2024 4:06 PM EST Oxygen Saturation 95% 02/08/2024 4:05 PM EST Inhaled Oxygen Concentration - - Weight 87.5 kg (193 lb) 05/07/2024 4:06 PM EST Height 165.1 cm (5' 5 ) 05/07/2024 4:06 PM EST Body Mass Index 32.12 05/07/2024 4:06 PM EST Plan of Treatment Upcoming Encounters Date Type Department Care Team (Late st Contact Info) Description 11/07/2024 4:30 PM EDT Office Visit Endocrinology - [place] [address] [place] [phone] Noemy Guo PA [address] [place] [address] Health Maintenance Due Date Last Done Comments Depression Screening 02/05/2022 Social Influencers of Health Screening 02/05/2022 COVID-19 Vaccine ( season) 2023 04/05/2023, 04/05/2023, 03/26/2021, Additional history exists Pneumococcal Vaccine: 50+ Years (3 of 3 - PPSV23, PCV20 or PCV21) 04/24/2024 04/24/2019, 02/13/2019 Pneumococcal Vaccine: Pediatrics (0 to 5 Years) and At-Risk Patients (6 to 64 Years) (3 of 3 - PPSV23, PCV20 or PCV21) 04/24/2024 04/24/2019, 02/13/2019 Zoster Vaccines (2 of 2) 06/28/2024 05/03/2024 Breast Cancer Screening 02/16/2025 02/17/20 23, 05/02/2020, 08/23/2018 Colorectal Cancer Screening: Colonoscopy 11/22/2027 11/21/2022 Cervical Cancer Screening: HPV 03/24/2028 03/24/2023 Cholesterol Screening (Lipid Panel) 05/07/2029 05/07/2024, 02/15/2023 DTaP,Tdap,and Td Vaccines (4 - Td or [...] on patient's age to complete this topic Meningococcal B Vaccine Aged Out No l onger eligible based on patient's age to complete this topic Varicella Vaccines Aged Out No longer eligible based on patient's age to complete this topic Procedures Procedure Name Priority Date/Time Associated Diagnosis Comments CORTISOL, FREE, URINE, 24H Routine 05/13/2024 8:10 AM EDT Hypothyroidism, unspecified type HEAD NECK SOFT TISSUE Routine 05/09/2024 5:51 PM EST Hypothyroidism, unspecified type LIPID PANEL WITH REFLEX TO DIRECT LDL Routine 05/07/2024 4:59 PM EST Hypothyroidism, unspecified type Mixed hyperlipidemia Obesity (BMI 30.0-34.9) THYROID STIMULATING HORMONE WITH REFLEX TO FREE T4 AND FREE T3 Routine 05/07/2024 4:59 PM EST Hypothyroidism, unspecified type VITAMIN D 25 HYDROXY Routine 05/07/2024 4:59 PM EST Hypothyroidism, unspecified type HPV Routine 03/24/2023 SCREENING MAMMOGRAPHY BI 2-VIEW BREAST INC CAD Routine 02/16/2023 9:57 AM EST Encounter for screening mammogram for malignant neoplasm of breast COLONOSCOPY Routine 11/21/2022 HEPATITIS C SCREENING Routine 03/11/2020 HIV SCREENING Routine 03/11/2020 from Last 3 Months or Most Recently Relevant to Health Maintenance Results * Cortisol, free, urine, 24H (05/13/2024 8:10 AM EDT) Cortisol F ug/L,U 9 Undefined ug/L 05/16/2024 5:05 PM EDT [facility] Cortisol F ug/24hr,U 26 6 - 42 ug/24 hr 05/16/2024 5:05 PM EDT [facility] Urine Urine specimen from urethra / Unknown Non-blood Collection / Unknown 05/13/2024 8:10 AM EDT 05/13/2024 8:11 AM EDT Narrative [facility] - 05/16/2024 5:05 PM EDT Test(s) [id number],F,ug/L,U was developed and its performance characteristics determined by [facility]. It has not been cleared or approved by the Food and Drug Administration. Performed at: ??01 - [facility] [address] ??[id number] Tree Farmer: Barbra Metz MD, Phone: ??[phone] Noemy CHAN LAB URINE ORDERABLES Final Result Performing Organization Address [facility]/State/[facility] Co de Phone Number [facility] * US Head Neck Soft Tissue (05/09/2024 5:51 PM EST) Anatomical Region Laterality Modality Head and Neck Ultrasound 05/10/2024 7:11 AM EST Impressions 05/10/2024 7:25 AM EST Heterogeneous thyroid gland. ??No thyroid nodules greater than 0.5 cm identified. TI-RADS 2017 reference: Naylasler FN, Manjit WD, Kurt EG, et al. ACR Thyroid Imaging, Reporting and Data System (TI-RADS): White Paper of the ACR TI-RADS Committee. J Am Leatha Radiol. Volume 14, Issue 5 , 587 595. http://www.jacr.org/article/T7011-2548(17)[email or web address]/fulltext ACR TI-RADS recommendations: TR1 and TR2: No FNA or follow-up. TR3: FNA if greater than 2.4 cm, follow-up if 1.5-2.4 cm in 1, 3 and 5 years. TR4: FNA if greater than 1.4 cm, follow-up if 1.0-1.4 cm in 1, 2, 3 and 5 years. TR5: FNA if greater than 0.9 cm, follow-up if 0.5-0.9 cm every year for 5 years. TI-RADS calculator: http://tiradscalculator.com/ -------- FINAL REPORT -------- Dictated By: Zhen Molina Dictated Date: 05/10/2024 07:11 ET Assigned Physician: Zhen Molina Reviewed and Electronically Signed By: Zhen Molina Signed Date: 05/10/2024 07:25 ET Workstation ID: [id number] Transcribed By: Self Edit Transcribed Date: 05/10/2024 07:24 ET Narrative 05/10/2024 7:25 AM EST THYROID ULTRASOUND INDICATION: hypothyroidism TECHNIQUE: Ultrasound evaluation of the thyroid gland was performed with garcia scale and color Doppler imaging. COMPARISON: None FINDINGS: ACR TI-RADS criteria was utilized for nodule description and follow-up recommendations. RIGHT THYROID: Right thyroid lobe demonstrates ??heterogeneous echotexture measuring 3.9 x 1.1 x 1.1 cm. No thyroid nodules greater than 0.5 cm identified. ?? LEFT THYROID: Left thyroid lobe demonstrates ??heterogeneous echotexture measuring 2.9 x 0.7 x 0.9 cm. ??No thyroid nodules greater than 0.5 cm identified. ISTHMUS: The isthmus measures 0.2 cm. VASCULARITY: Color doppler demonstrates normal blood flow to thyroid gland. Procedure Note Zhen Molina MD - 05/10/2024 THYROID ULTRASOUND INDICATION: hypothyroidism TECHNIQUE: Ultrasound evaluation of the thyroid gland was performed withgray scale and color Doppler imaging. COMPARISON: None FINDINGS: ACR TI-RADS criteria was utilized for nodule description and follow-uprecommendations. RIGHT THYROID: Right thyroid lobe demonstrates heterogeneous echotexturemeasuring 3.9 x 1.1 x 1.1 cm. No thyroid nodules greater than 0.5 cmidentified. LEFT THYROID: Left thyroid lobe demonstrates heterogeneous echotexturemeasuring 2.9 x 0.7 x 0.9 cm. No thyroid nodules greater than 0.5 cmidentified. ISTHMUS: The isthmus measures 0.2 cm. VASCULARITY: Color doppler demonstrates normal blood flow to thyroidgland. IMPRESSION: Heterogeneous thyroid gland. No thyroid nodules greater than 0.5 cmidentified. TI-RADS 2017 reference: Naylasler FN, Manjit WD, Kurt EG, et al. ACR Thyroid Imaging, Reportingand Data System (TI-RADS): White Paper of the ACR TI-RADS Committee. J AmColl Radiol. Volume 14, Issue 5 , 587 - 204. http://www.jacr.org/article/R7693-7757(94)[email or web address]/fulltext ACR TI-RADS recommendations: TR1 and TR2: No FNA or follow-up. TR3: FNA if greater than 2.4 cm, follow-up if 1.5-2.4 cm in 1, 3 and 5years. TR4: FNA if greater than 1.4 cm, follow-up if 1.0-1.4 cm in 1, 2, 3 and 5years. TR5: FNA if greater than 0.9 cm, follow-up if 0.5-0.9 cm every year for 5years. TI-RADS calculator: http://tiradscalculator.com/ -------- FINAL REPORT -------- Dictated By: Zhen Molina Dictated Date: 05/10/2024 07:11 ET Assigned Physician: Zhen Molina Reviewed and Electronically Signed By: Zhen Molina Signed Date: 05/10/2024 07:25 ET Workstation ID: [id number] Transcribed By: Self Edit Transcribed Date: 05/10/2024 07:24 ET us Noemy CHAN IMG US PROCEDURES Final Res ult * Thyroid stimulating hormone with reflex to free t4 and free t3 (05/07/2024 4:59 PM EST) TSH 2.37 0.40 - 4.00 mcIU/mL LAB CHEMISTRY METHOD 05/07/2024 6:58 PM EST [facility] Blood Venous blood specimen / Unknown Venipuncture / Unknown 05/07/2024 4:59 PM EST 05/07/2024 4:59 PM EST us Noemy CHAN LAB BLOOD ORDERABLES Final Result [facility] [address] [place] [address], [place] [phone] * (ABNORMAL) Lipid panel with reflex to direct LDL (05/07/2024 4:59 PM EST) Pathologist [facility] Cholesterol 236(H) 0 - 200 mg/dL LAB CHEMISTRY METHOD 05/07/2024 6:54 PM [facility] Triglycerides 424(H) 0 - 150 mg/dL LAB CHEMISTRY METHOD 05/07/2024 6:54 PM [facility] HDL 61 >=40 mg/dL LAB CHEMISTRY METHOD 05/07/2024 6:54 PM [facility] LDL Calculated 90 0 - 100 mg/dL LAB CHEMISTRY METHOD 05/07/2024 6:54 PM [facility] Comment:Unable to calculate when triglycerides >400 mg/dL. VLDL Cholesterol Charles 84.8 mg/dL LAB CHEMISTRY METHOD 05/07/2024 6:54 PM [facility] Comment:Unable to calculate when triglycerides >400 mg/dL. Non HDL Chol. (LDL+VLDL) 175(H) <145 mg/dL LAB CHEMISTRY METHOD 05/07/2024 6:54 PM [facility] Comment:Unable to calculate when triglycerides >400 mg/dL. Chol/HDL Ratio 3.9 0.0 - 4.4 LAB CHEMISTRY METHOD 05/07/2024 6:54 PM [facility] Blood Venous blood specimen / Unknown Venipuncture / Unknown 05/07/2024 4:59 PM EST 05/07/2024 4:59 PM EST Michaelle CHAN LAB BLOOD ORDERABLES Final Re sult Performing Organization Address [facility]/ZIP Co de Phone Number [facility] [address] [place] [address], [place] [phone] * (ABNORMAL) Vitamin D 25 hydroxy (05/07/2024 4:59 PM EST) [facility] Vit D, 25-Hydroxy 24.8(L) 30.0 - 80.0 ng/mL LAB CHEMISTRY METHOD 05/07/2024 6:58 PM EST [facility] Blood Venous blood specimen / Unknown Venipuncture / Unknown 05/07/2024 4:59 PM EST 05/07/2024 4:59 PM EST Noemy CHAN LAB BLOOD ORDERABLES Final Result Performing Organization Address [facility]/ZIP Co de Phone Number [facility] [address] [place] [address], [place] [phone] * Cervical Cancer Screening: HPV (03/24/2023) [facility] Cervical Cancer Screening: HPV negative, abstracted Historical Provider HEALTH MAINTENANCE Final Result * SCREENING MAMMOGRAPHY BI 2-VIEW BREAST INC [...] Low (<15%) Michaelle CHAN IMG XR PROCEDURES Final Resul t * Colonoscopy (11/21/2022) [facility] Colonoscopy no interpretation , abstracted Anatomical Region Laterality Modality Other Result [facility] Historical Provider HEALTH MAINTENANCE Final Result * HIV Screening (03/11/2020) [facility] HIV Screening abstracted Result [facility] Historical Provider HEALTH MAINTENANCE Final Result * Hepatitis C Screening (03/11/2020) [facility] Hepatitis C Screening abstracted Historical Provider HEALTH MAINTENANCE Final Result from Last 3 Months or Most Recently Relevant to Health Maintenance [place] [place] [address] Care Teams Cable Mock Up Assembler Relationship Specialty Start Date End Date Sheila Dunn MD [address] [place] [address] PCP - General 06/06/00
== END 2024-07-02 15:05 | disposition home or self-care (01) ==
LOC: HO.RHES 14:32
PROVIDERS: PCP Internal Medicine Rheumatology; Visit Provider Internal Medicine Rheumatology
DX: M33.13 Other dermatomyositis without myopathy (principal); Z79.899 Other long term (current) drug therapy
CPT/HCPCS: 99214

== ENCOUNTER 2024-10-03 14:05 | Outpatient (AMB) | payer OTHER, SELFPAY ==
--- NOTE | 2024-10-03 14:08 | A.OFFVIS_ITS ---
Vital Signs 10/03/24 14:09 Height 5 ft 5 in Weight 188 lb 4 oz BMI 31.3 BP 110/80 Blood Pressure Location Rt brachial Position Sitting Pulse 72 Pulse Source Pulse Oximeter Pulse Oximetry (%) 97 Oxygen Delivery Method Room Air Intake Visit Reasons: 3 Months Intake Note: Patient presents for follow up on dermatomyositis with myopathy. Allergies No Known Allergies Allergy (Verified 10/03/24 14:09) HPI HPI 3 Months: Details: She feels well. Denies muscle pain, muscle stiff, weakness, dysphagia, dyspnea, rash. PFSH Surgical History H/O breast augmentation S/P tonsillectomy Family History Mother Lung cancer Father Diabetes Social History Household Members: Family Alcohol intake: current Alcohol intake frequency: holidays/special occasions only Patient Tobacco Use Status: Former Tobacco user Physical Exam Vital Signs: Last Vital Signs Pulse 72 10/03/24 14:09 BP 110/80 10/03/24 14:09 Pulse Ox 97 10/03/24 14:09 Oxygen Delivery Method Room Air 10/03/24 14:09 BMI result Body Mass Index 31.3 Const Other: General: Comfortable CVS: RRR Respiratory: clear to auscultation bilaterally. Good respiratory effort Skin: No lesions seen MSK: No tenderness of any joint. Normal range of motion of upper extremities and lower extremities. Power 5/5 upper extremities and lower extremities. Assessment & Plan Assessment & Plan (1) Dermatomyositis: Comment: In clinical remission on mycophenolate mofetil. 06/2024 labs revealed mild elevation of CK, CRP and transaminitis, which I suspect is coming from the muscles. Patient did not repeat labs. Code(s): M33.13 - Other dermatomyositis without myopathy Category: Medical Plan: Labs for disease and drug monitoring on high-risk medication ordered. We will inform patient if labs continue to be abnormal. Continue mycophenolate mofetil 1500 mg twice a day Return to clinic in 3 months (2) Other superintendent container terminal (current) drug therapy: Code(s): Z79.899 - Other superintendent container terminal (current) drug therapy Category: Medical Plan: See above (3) Transaminitis: Code(s): R74.01 - Elevation of levels of liver transaminase levels Category: Medical Plan: See above Orders: Orders C Reactive Protein Today Z79.899 - Other intermediate (current) drug therapy Creatine Kinase Total 3 Months M33.13 - Other dermatomyositis without myopathy Complete Blood Count Auto Diff Today Z79.899 - Other intermediate (current) drug therapy Creatinine Today Z79.899 - Other superintendent container terminal (current) drug therapy Erythrocyte Sedimentation Rate Today Z79.899 - Other superintendent container terminal (current) drug therapy Complete Blood Count Auto Diff 3 Months Z79.899 - Other superintendent container terminal (current) drug therapy Alanine Aminotransferase 3 Months Z79.899 - Other intermediate (current) drug therapy Aspartate Amino Transferase 3 Months Z79.899 - Other intermediate (current) drug therapy Creatinine 3 Months Z79.899 - Other intermediate (current) drug therapy C Reactive Protein 3 Months Z79.899 - Other superintendent container terminal (current) drug therapy Erythrocyte Sedimentation Rate 3 Months Z79.899 - Other superintendent container terminal (current) drug therapy Aldolase 3 Months M33.13 - Other dermatomyositis without myopathy Coding Level of Care Code Est Pt Level 4 (29938) Complex EM visit Add On G2211 Diagnoses Dermatomyositis M33.13 Other intermediate (current) drug therapy Z79.899 Transaminitis R74.01
[2024-10-03 14:09] VITALS: BP 110/80; PULSE 72; O2SAT 97; BMI 31.3
--- OUTSIDE RECORDS SUMMARY | 2024-10-03 14:20 | XMS_ITS | Clinical Summary ---
Author Organization [address] Address [address] [place] [id number] Phone Care Team Providers Care Probation Supervisor Name Role Phone Sheila Dunn MD Primary Care Provider [phone] Allergies Active Allergy Reactions Criticality Noted Date [...] bedtime as needed. Active multivitamin with minerals (CENTRUM/CERTAV IT) 18-400 mg-mcg tablet tablet Take by mouth. Activ e atorvastatin (LIPITOR) 10 mg tablet Take 1 tablet (10 mg total) by mouth at bedtime. 90 tablet 5 Active levothyroxine (SYNTHROID, LEVOTHROID) 88 mcg tablet TAKE 1 TABLET (88 MCG TOTAL) BY MOUTH EVERY DAY BEFORE BREAKFAST 30 tablet 11 5 Active Active Problems Problem Noted Date Diagnosed Date Tubular adenoma 11/23/2022 Overview (12/25/2023): 11/26 CN tubular adenoma, repeat 5 years Dermatomyositis (CMS/HCC V24, CMS/HCC V28) 02/13 Positive MATT (antinuclear antibody) 11/08/2018 Obesity (BMI 30.0-34.9) 12/19/2017 Hyperlipidemia 08/13/2008 Overview (12/25/2023): ASCVD score: 4% (DEC 2019) Hypothyroid 07/13/2008 Bipolar disorder ([facility] V24, [facility] V28) 08/05 Overview (12/25/2023): admission 05/09, manic Immunizations Name Administration Dates Next Due COVID-19 (Pfizer/Comirnaty) 12yo and older 04/05/2023 H1N1 Inj Preservative Free 02/20/2009 Hepatitis B (Jylmwnq-D-Xbnpy , Recombivax HB-Adult) 19yo and older 04/24/2019,07/20/2016,02/24/2016,01/26 [...] History Date Comments Bipolar disorder, unspecifie d ([facility] V24, [facility] V28) 08/24/2005 DX:Bipolar disorder, unspeci fied ([facility]); COMMENT: admission 05/09, manic Alcohol abuse, unspecified 08/24/2005 DX:Al cohol abuse, unspecified; COMMENT: DUI Hypothyroid 07/13/2008 DX:Hypothyroid Hypercholesteremia 08/13/2008 DX:Hyperchole steremia Endometrial polyp DX:Endometrial polyp Submucous leiomyoma of uterus DX :Submucous leiomyoma of uterus Pyelonephritis 05/14/2005 DX:Pyelonephriti s; COMMENT: 06/06 IMO update Dermatomyositis ([facility] V24 , [facility] V28) 02/13/2019 DX:Dermatomyositis ([facility]) Tubular adenoma 11/23/2022 DX:Tubular adeno ma; COMMENT: [...] 78 05/07/2024 4:06 PM EST Temperature 36.5 C (97.7 F) 05/07/2024 4:06 PM EST Respiratory Rate 14 05/07/2024 4:06 PM EST [...] 4:30 PM EDT Office Visit Endocrinology - [address] [phone] Noemy Guo PA [address] [place] [address] Health Maintenance Due Date Last Done Comments Social Influencers of Health Screening 02/05/2022 COVID-19 Vaccine ( season) 2023 04/05/2023, 04/05/2023, 03/26/2021, Additional history exists Depression Screening 03/06/2024 Pneumococcal Vaccine: 50+ Years (3 of 3 - PPSV23, PCV20 or PCV21) 04/24/2024 04/24/2019, 02/13/2019 Zoster Vaccines (2 of 2) 06/28/2024 05/03/2024 Influenza Vaccine (#1) 2024 4, 01/31/2023, 01/31/2023, Additional history exists Breast Cancer Screening 02/16/2025 02/17/20 23, 05/02/2020, [...] on patient's age to complete this topic HIB Vaccines Aged Out No longer eligi [...] Procedure Name Priority Date/Time Associated Diagnosis Comments LIPID PANEL WITH REFLEX TO DIRECT LDL Routine 05/07/2024 4:59 PM EST Hypothyroidism, unspecified type Mixed hyperlipidemia Obesity (BMI 30.0-34.9) HM HPV Routine 03/24/2023 SCREENING MAMMOGRAPHY BI 2-VIEW BREAST INC CAD Routine 02/16/2023 9:57 AM EST Encounter for screening mammogram for malignant neoplasm of breast COLONOSCOPY Routine 11/21/2022 HEPATITIS C SCREENING Routine 03/11/2020 HIV SCREENING Routine 03/11/2020 from Last 3 Months or Most Recently Relevant to Health Maintenance Results * (ABNORMAL) Lipid panel with reflex to direct LDL (05/07/2024 4:59 PM EST) Cholesterol 236(H) 0 - 200 mg/dL LAB CHEMISTRY METHOD 05/07/2024 6:54 PM EST [facility] Triglycerides 424(H) 0 - 150 mg/dL LAB CHEMISTRY METHOD 05/07/2024 6:54 PM [facility] HDL 61 >=40 mg/dL LAB CHEMISTRY METHOD 05/07/2024 6:54 PM [facility] LDL Calculated 90 0 - 100 mg/dL LAB CHEMISTRY METHOD 05/07/2024 6:54 PM [facility] Comment:Unable to calculate when triglycerides >400 mg/dL. VLDL Cholesterol Charles 84.8 mg/dL LAB CHEMISTRY METHOD 05/07/2024 6:54 PM [facility] Comment:Unable to calculate when triglycerides >400 mg/dL. Non HDL Chol. (LDL+VLDL) 175(H) <145 mg/dL LAB CHEMISTRY METHOD 05/07/2024 6:54 PM [facility] Comment:Unable to calculate when triglycerides >400 mg/dL. Chol/HDL Ratio 3.9 0.0 - 4.4 LAB CHEMISTRY METHOD 05/07/2024 6:54 PM [facility] Blood Venous blood specimen / Unknown Venipuncture / Unknown 05/07/2024 4:59 PM EST 05/07/2024 4:59 PM EST Michaelle CHAN LAB BLOOD ORDERABLES Final Re sult [facility] [address] [place] [address], [place] [phone] * Cervical Cancer Screening: HPV (03/24/2023) Cervical Cancer Screening: HPV negative, abstracted us Historical Provider HEALTH MAINTENANCE Final Result * [...] reviewed with CAD and compared to previous. Both standard and implant displaced views were obtained bilaterally. Bilateral subpectoral saline implants remain appropriately configured and positioned. The breasts are composed of fatty and fibroglandular tissue. No suspicious mass, architectural distortion or suspicious calcifications [...] % Breast cancer risk category Low (<15%) Result [facility] [place] Michaelle CHAN IMG XR PROCEDURES Final Resul t * Colonoscopy (11/21/2022) Pathologist [facility] Colonoscopy no interpretation , abstracted Anatomical Region Laterality Modality Other Historical Provider HEALTH MAINTENANCE Final Result * HIV Screening (03/11/2020) Pathologist [facility] HIV Screening abstracted Historical Provider HEALTH MAINTENANCE Final Result * Hepatitis C Screening (03/11/2020) Pathologist [facility] Hepatitis C Screening abstracted [facility] Provider HEALTH MAINTENANCE Final Result from Last 3 Months or Most Recently Relevant to Health Maintenance [place] [address] [place] [address] Care Teams Probation Supervisor Relationship Specialty Start Date End Date Sheila Dunn MD [address] [place] [id number] PCP - General 06/06/00
== END 2024-10-03 14:43 | disposition home or self-care (01) ==
LOC: HO.RHES 14:05
PROVIDERS: PCP Internal Medicine Rheumatology; Visit Provider Internal Medicine Rheumatology
DX: M33.13 Other dermatomyositis without myopathy (principal); Z79.899 Other long term (current) drug therapy; R74.01 Elevation of levels of liver transaminase levels
CPT/HCPCS: 99214; G2211

== ENCOUNTER 2024-10-03 14:05 | Outpatient (REF) | payer OTHER, SELFPAY ==
[2024-10-03 17:52] LABS: MANUAL DIFF FLAG NO
[2024-10-03 18:20] LABS: Alanine Aminotransferase 35 U/L (0-31); Albumin Level 4.6 g/dL (3.5-5.0); Alkaline Phosphatase 61 U/L (39-117); Aspartate Amino Transferase 31 U/L (5-31); Estimated Glomerular Filt Rate > 60; Total Protein 7.0 g/dL (6.5-8.0)
[2024-10-03 18:27] LABS: Hematocrit 44.3 % (37.0-47.0); Hemoglobin 14.9 g/dl (12.0-16.0); Imm Gran Abs Auto 0.02 X10*3/uL (0.00-0.03); Imm Gran Pct Auto 0.3 % (0.0-0.4); Lymphocytes Absolute Auto 1.8 X10*3/uL (1.2-4.9); Mean Corpuscular HGB Conc 33.6 g/dl (31.0-35.0); Mean Corpuscular Hemoglobin 31.9 pg (27.0-33.0); Mean Corpuscular Volume 94.9 fL (80.0-98.0); NRBC Abs Auto 0.000 X10*3/uL (0.0-0.012); NRBC Pct Auto 0.0 /100WBC (0.0-0.2); Platelet Count 197 X10*3/uL (160-400); Red Blood Count 4.67 X10*6/uL (4.20-5.50); White Blood Count 7.4 X10*3/uL (4.8-10.8)
== END 2024-10-03 14:06 | disposition home or self-care (01) ==
LOC: HO.HKASLDS 14:05
PROVIDERS: PCP Internal Medicine Rheumatology; Visit Provider Internal Medicine Rheumatology
DX: M33.13 Other dermatomyositis without myopathy (principal); R74.01 Elevation of levels of liver transaminase levels; Z79.899 Other long term (current) drug therapy; R79.82 Elevated C-reactive protein (CRP); R74.8 Abnormal levels of other serum enzymes; Z79.624 Long term (current) use of inhibitors of nucleotide synthesis
CPT/HCPCS: 36415; 80076; 82085; 82550; 82565; 85025; 85652; 86140

== ENCOUNTER 2025-01-15 13:52 | Outpatient (REF) | payer OTHER, SELFPAY ==
[2025-01-15 18:08] LABS: MANUAL DIFF FLAG NO
[2025-01-15 18:23] LABS: Alanine Aminotransferase 31 U/L (0-31); Aspartate Amino Transferase 32 U/L (5-31); Estimated Glomerular Filt Rate 53
[2025-01-15 19:07] LABS: Hematocrit 43.0 % (37.0-47.0); Hemoglobin 13.9 g/dl (12.0-16.0); Imm Gran Abs Auto 0.03 X10*3/uL (0.00-0.03); Imm Gran Pct Auto 0.4 % (0.0-0.4); Lymphocytes Absolute Auto 1.9 X10*3/uL (1.2-4.9); Mean Corpuscular HGB Conc 32.3 g/dl (31.0-35.0); Mean Corpuscular Hemoglobin 31.0 pg (27.0-33.0); Mean Corpuscular Volume 95.8 fL (80.0-98.0); NRBC Abs Auto 0.000 X10*3/uL (0.0-0.012); NRBC Pct Auto 0.0 /100WBC (0.0-0.2); Platelet Count 210 X10*3/uL (160-400); Red Blood Count 4.49 X10*6/uL (4.20-5.50); White Blood Count 7.6 X10*3/uL (4.8-10.8)
== END 2025-01-15 13:53 | disposition home or self-care (01) ==
LOC: HO.HKASLDS 13:52
PROVIDERS: PCP Internal Medicine Rheumatology; Visit Provider Internal Medicine Rheumatology
DX: M33.13 Other dermatomyositis without myopathy (principal); R74.01 Elevation of levels of liver transaminase levels; Z51.81 Encounter for therapeutic drug level monitoring; Z79.624 Long term (current) use of inhibitors of nucleotide synthesis
CPT/HCPCS: 36415; 82085; 82550; 82565; 84450; 84460; 85025; 85652; 86140

== ENCOUNTER 2025-01-15 13:52 | Outpatient (AMB) | payer OTHER, SELFPAY ==
[2025-01-15 14:05] VITALS: BP 120/80; PULSE 82; O2SAT 97; BMI 31.9
--- NOTE | 2025-01-15 14:05 | MHC.OFFVIS ---
Vital Signs 01/15/25 14:05 Height 5 ft 5 in Weight 191 lb 9.307 oz BMI 31.9 BP 120/80 Blood Pressure Location Rt brachial Position Sitting Pulse 82 Pulse Source Pulse Oximeter Pulse Oximetry (%) 97 Oxygen Delivery Method Room Air Intake Visit Reasons: 4 months Accompanied by: Self / Same As Patient Allergies No Known Allergies Allergy (Verified 01/15/25 14:06) HPI HPI 4 months: Details: She feels well. No dyspnea, rash, dysphagia. No recent infections. PFSH Surgical History H/O breast augmentation S/P tonsillectomy Family History Mother Lung cancer Father Diabetes Social History Household Members: Family Alcohol intake: current Alcohol intake frequency: holidays/special occasions only Patient Tobacco Use Status: Former Tobacco user Physical Exam Vital Signs: BMI result Body Mass Index 31.9 Const Other: General: Comfortable CVS: RRR Respiratory: clear to auscultation bilaterally. Good respiratory effort Skin: No lesions seen MSK: No tenderness of any joint. Normal range of motion of upper extremities and lower extremities. Power 5/5 upper extremities and lower extremities. Assessment & Plan Assessment & Plan (1) Dermatomyositis: Comment: In clinical remission on mycophenolate mofetil. 09/2024 labs revealed mild elevation of CK downtrending, normalize CRP and downtrending transaminitis, which I suspect is coming from the muscles. Code(s): M33.13 - Other dermatomyositis without myopathy Category: Medical Plan: Labs for disease and drug monitoring on high-risk medication ordered. I will inform patient if she continues to have abnormal labs. Continue mycophenolate mofetil 1500 mg twice a day Immunizations: Flu shot up-to-date. She will obtain COVID-19 booster. Return to clinic in 3 months (2) Other chcf (current) drug therapy: Code(s): Z79.899 - Other chcf (current) drug therapy Category: Medical Plan: See above (3) Transaminitis: Code(s): R74.01 - Elevation of levels of liver transaminase levels Category: Medical Plan: See above Plan Patient inquired about weight management. I have recommended that she follow up with PCP for weight management. Medications: Refilled mycophenolate mofetil 3 tabs in the morning, 3 tabs at night. 1,500 mg (3 x 500 mg) PO BID 180 tabs 2RF Coding Level of Care Code Est Pt Level 4 (13267) Complex EM visit Add On G2211 Diagnoses Dermatomyositis M33.13 Other chcf (current) drug therapy Z79.899 Transaminitis R74.01
--- OUTSIDE RECORDS SUMMARY | 2025-01-15 17:04 | XMS_ITS | Clinical Summary ---
Author Organization [address] Address [address] [place] [phone] Phone Care Team Providers Care Medical Equipment Repair Technician Name Role Phone Sheila Dunn MD Primary Care Provider [phone] Allergies Active Allergy Reactions Criticality Noted Date [...] 4% (DEC 2019) Hypothyroid 07/13/2008 Bipolar disorder ([facility] V24, [facility] V28) 08/05 Overview (12/25/2023): admission 05/09, manic Immunizations Immunization Administration Dates Next Due COVID-19 (Pfizer/Comirnaty) 12yo and older 04/05/2023 H1N1 Inj Preservative Free 02/20/2009 Hepatitis B (Damyudi-W-Bbcfy , Recombivax HB-Adult) 19yo and older 04/24/2019,07/20/2016,02/24/2016,01/26 [...] History Date Comments Bipolar disorder, unspecifie d ([facility] V24, [facility] V28) 08/24/2005 DX:Bipolar disorder, unspeci fied ([facility]); COMMENT: admission 05/09, manic Alcohol abuse, unspecified 08/24/2005 DX:Al cohol abuse, unspecified; COMMENT: DUI Hypothyroid 07/13/2008 DX:Hypothyroid Hypercholesteremia 08/13/2008 DX:Hyperchole steremia Endometrial polyp DX:Endometrial polyp Submucous leiomyoma of uterus DX :Submucous leiomyoma of uterus Pyelonephritis 05/14/2005 DX:Pyelonephriti s; COMMENT: 06/06 IMO update Dermatomyositis ([facility] V24 , [facility] V28) 02/13/2019 DX:Dermatomyositis ([facility]) Tubular adenoma 11/23/2022 DX:Tubular adeno ma; COMMENT: [...] Years Used Date Smoking Tobacco: Former Cigarettes 0.5 Q uit: 04/06/2019 Smokeless Tobacco: Never Tobacco [...] 05/07/2024 4:06 PM EST Plan of Treatment Health Maintenance Due Date Last Done Comments RSV Immunization Adult Patients (1 - Risk 50-74 years 1-dose series) 09/24/2021 04/05/2023 Social Influencers of Health Screening 02/05/2022 Depression Screening 03/06/2024 Pneumococcal Vaccine: 50+ Years (3 of 3 - PCV20 or PCV21) 04/24/2024 04/24/2019, 02/13/2019 Zoster Vaccines (2 of 2) 06/28/2024 05/03/2024 COVID-19 Vaccine (5 - 2024- season) 2024 04/05/2023, 04/05/2023, 03/26/2021, Additional history exists Influenza Vaccine (#1) 2024 , 01/31/2023, 01/31/2023, Additional history exists Breast Cancer [...] to direct LDL (05/07/2024 4:59 PM EST) [facility] Signature Cholesterol 236(H) 0 - 200 mg/dL LAB CHEMISTRY METHOD 05/07/2024 6:54 PM EST [facility] Triglycerides 424(H) 0 - 150 mg/dL LAB CHEMISTRY METHOD 05/07/2024 6:54 PM EST [facility] HDL 61 >=40 mg/dL LAB CHEMISTRY METHOD 05/07/2024 6:54 PM EST [facility] LDL Calculated 90 0 - 100 mg/dL LAB CHEMISTRY METHOD 05/07/2024 6:54 PM EST [facility] Comment:Unable to calculate when triglycerides >400 mg/dL. VLDL Cholesterol Charles 84.8 mg/dL LAB CHEMISTRY METHOD 05/07/2024 6:54 PM EST [facility] Comment:Unable to calculate when triglycerides >400 mg/dL. Non HDL Chol. (LDL+VLDL) 175(H) <145 mg/dL LAB CHEMISTRY METHOD 05/07/2024 6:54 PM EST [facility] Comment:Unable to calculate when triglycerides >400 mg/dL. Chol/HDL Ratio 3.9 0.0 - 4.4 LAB CHEMISTRY METHOD 05/07/2024 6:54 PM EST [facility] Blood Venous blood specimen / Unknown Venipuncture / Unknown 05/07/2024 4:59 PM EST 05/07/2024 4:59 PM EST us Michaelle CHAN LAB BLOOD ORDERABLES Final Re sult [facility] [address] [place] [address], [place] [phone] * Cervical Cancer Screening: HPV (03/24/2023) Cervical [...] PROCEDURES Final Resul t * Colonoscopy (11/21/2022) Colonoscopy no interpretation , abstracted Anatomical Region Laterality Modality Other Historical Provider HEALTH MAINTENANCE Final Result * HIV Screening (03/11/2020) HIV Screening abstracted Historical Provider HEALTH MAINTENANCE Final Result * Hepatitis C Screening (03/11/2020) Hepatitis C Screening abstracted Historical Provider HEALTH MAINTENANCE Final Result from Last 3 Months or Most Recently Relevant to Health Maintenance Insurance [facility] Care Teams Medical Equipment Repair Technician Relationship Specialty Start Date End Date Sheila Dunn MD [address] [place] [address] PCP - General 06/06/00
== END 2025-01-15 14:37 | disposition home or self-care (01) ==
LOC: HO.RHES 13:52
PROVIDERS: PCP Internal Medicine Rheumatology; Visit Provider Internal Medicine Rheumatology
DX: M33.13 Other dermatomyositis without myopathy (principal); Z79.899 Other long term (current) drug therapy; R74.01 Elevation of levels of liver transaminase levels
CPT/HCPCS: 99214; G2211